=== PATIENT | female | born 1960 | race Caucasian/White ===

== ENCOUNTER → 2017-04-25 | Outpatient (CLI) | payer OTHER | LOC: FIMAGING 07:49 | PROVIDERS: ATTEND Physician Assistant | DX: Z12.31 Encounter for screening mammogram for malignant neoplasm of breast (principal) | CPT/HCPCS: G0202 ==

== ENCOUNTER → 2017-08-02 | Outpatient (CLI) | payer OTHER | LOC: FIMAGING 17:24 | PROVIDERS: ATTEND Physician Assistant | DX: J18.9 Pneumonia, unspecified organism (principal) ==

== ENCOUNTER → 2017-09-03 | Outpatient (CLI) | payer OTHER | LOC: FIMAGING 16:40 | PROVIDERS: ATTEND Physician Assistant | DX: J18.1 Lobar pneumonia, unspecified organism (principal) ==

== ENCOUNTER → 2017-10-19 | Outpatient (CLI) | payer OTHER | LOC: FIMAGING 11:46 | PROVIDERS: ATTEND Physician Assistant | DX: R91.8 Other nonspecific abnormal finding of lung field (principal) ==

== ENCOUNTER → 2017-10-25 | Outpatient (CLI) | payer OTHER ==
[~2017-10-25] MED LIST: IOPAMIDOL (ISOVUE-300) 100 ML BTL ONE
== END ==
LOC: FIMAGING 14:53
PROVIDERS: ATTEND Physician Assistant
DX: R91.8 Other nonspecific abnormal finding of lung field (principal)
CPT/HCPCS: Q9967

== ENCOUNTER 2018-01-01 12:25 | Day surgery (SDC) | payer OTHER ==
[2018-01-01] MEDS ORDERED: ALBUTEROL 3 ML DEYVIAL ONE (13:10)
[2018-01-01] MEDS ORDERED: LIDOCAINE 1% 300 MG/30 ML SDV ONE (13:15)
[2018-01-01] MEDS ORDERED: LIDOCAINE 2% JELLY 5 ML TUBE ONE (13:16)
[2018-01-01] MEDS ORDERED: MIDAZOLAM 2 MG/2 ML VIAL ONE (13:20)
[2018-01-01] MEDS ORDERED: fentaNYL 100 MCG/2 ML INJ ONE (13:21)
--- NOTE | 2018-01-01 13:36 | PDPROPOC ---
Sedation Plan of Care Sedation Plan of Care: vital signs stable, mental status noted, patient educated of risks, benefits, alternatives, patient can tolerate sedation ASA Classification: ASA 2 Planned drugs: fentanyl, midazolam Mallampati Score: Class 2 Mallampati Reference Image: Patient passed 3-3-2 rule?: Yes
--- NOTE | 2018-01-01 13:59 | BVPULMO ---
[facility] Surgical Services- Pulmonology Patient Name: Georgia Rosas Procedure Date: 01/01/2018 1:24 PM Patient Type: Outpatient Attending MD/ER Physician: David Jc MD Procedure: Bronchoscopy Indications: Suspicious left upper lobe lesion, Bronchiectasis, Abnormal CT scan of chest Providers: David Jc MD Medicines: Lidocaine applied to nares and subglottic space, Lidocaine 4% via nebulizer wit h Albuterol 2.5 mg, Fentanyl 125 mcg IV, Midazolam 5 mg IV, Lidocaine 1% applied to cords 1 mL, Lidocaine 2% subglottic space 2 mL, Lidocaine 2% applied to the tracheobronchial tree 3 mL Complications: No immediate complications Procedure: After informed consent, a time out was performed. N95 masks were worn, and the procedure was done in a negative pressure room. The patient was given appropria te topical anesthesia and intravenous sedation. The fiberopic bronchoscope was pas sed via a bite block orally into the larynx and subsequently into the lower trachea bronchial tree. Throughout the procedure, the patient's blood pressure, pulse, and oxygen saturations were monitored continuously. The Bronchoscope (Video) was introduced through the mouth and advanced to the tracheobronchial tree of both lungs. The procedure was accomplished without difficulty. The patient tolerated the procedure well. The total duration of the procedure was 20 minutes. Findings: The oropharynx appears normal. The larynx appears normal. The vocal cords appea r normal. The subglottic space is normal. The trachea is of normal caliber. The c michael is sharp. The tracheobronchial tree was examined to at least the first subsegme ntal level. Bronchial mucosa and anatomy are normal; there are no endobronchial lesi ons, and no secretions. Bronchoalveolar lavage was performed in the DAY[place] apical posterior segments (B1 & B2) and in the [place] anterior segment (B3) of the lung and sent for cell count, bacte rial culture, viral smears & culture, and fungal & AFB analysis and cytology, cell c ount and differential and routine cytology. 60 mL of fluid were instilled. 40 mL wer e returned. The return was cloudy. There were no mucoid plugs in the return fluid . Post Op Diagnosis: - Suspicious left upper lobe lesion - Bronchiectasis - Abnormal CT scan of chest - The examination was normal. - Bronchoalveolar lavage was performed. Estimated Blood Loss: Estimated blood loss: none. Recommendation: - Await BAL results. - Follow up with bronchoscopist in 1 month. Attending Participation: I personally performed the entire procedure. David Jc MD David Jc MD 01/01/2018 1:59:12 PM This report has been signed electronicallyThmatty Jc MD Number of Addenda: 0 Note Initiated On: 01/01/2018 1:24 PM [email or web address]
[2018-01-01 15:42] VITALS: TEMP 97.7
[2018-01-01 15:56] VITALS: BP 138/75; PULSE 97; RESP 16; O2SAT 98
== END 2018-01-01 14:55 | disposition home or self-care (01) ==
LOC: FSGY 12:25
PROVIDERS: ATTEND Internal Medicine Pulmonary Disease
PROC: 0B988ZX Drainage of Left Upper Lobe Bronchus, Via Natural or Artificial Opening Endoscopic, Diagnostic (ICD-10-PCS; principal; 2018-01-01 13:15)
DX: R91.8 Other nonspecific abnormal finding of lung field (principal); J47.9 Bronchiectasis, uncomplicated
CPT/HCPCS: J0171; J2250; J3010; J7613

== ENCOUNTER → 2018-03-12 | Outpatient (CLI) | payer OTHER | LOC: FIMAGING 09:16 | PROVIDERS: ATTEND Physician Assistant | DX: R91.8 Other nonspecific abnormal finding of lung field (principal) ==

== ENCOUNTER → 2018-04-26 | Outpatient (CLI) | payer OTHER | LOC: FIMAGING 12:35 | PROVIDERS: ATTEND Physician Assistant | DX: Z12.31 Encounter for screening mammogram for malignant neoplasm of breast (principal) ==

== ENCOUNTER → 2019-01-10 | Outpatient (CLI) | payer OTHER | LOC: FIMAGING 12:12 | PROVIDERS: ATTEND Internal Medicine Pulmonary Disease | DX: J18.1 Lobar pneumonia, unspecified organism (principal) ==